=== PATIENT | female | born 1950 | race Two or more races ===

== ENCOUNTER 2018-11-27 12:48 | Emergency (ER) | payer OTHER ==
--- NOTE | 2018-11-27 12:57 | PDOC ---
History of Present Illness - General Chief Complaint: Injury Stated Complaint: FALL,HIT HEAD Time Seen by Provider: 11/27/18 12:52 History Source: Patient Exam Limitations: No Limitations - History of Present Illness Initial Comments: 11/27/18 12:52 68 y/o female fell yesterday and hit the back of her head. She tried coming to the ER last night but didn't know how to get in. She denies LOC. No pain, weakness or numbness. Not on blood thinners. Feels fine otherwise. No headache. Denies N/V. Severity: mild Associated Symptoms: denies: headaches, nausea/vomiting, syncope Review of Systems - Review of Systems Able to Perform ROS?: Yes Is the patient limited Syriac proficient: No Constitutional: No: Chills, Fever Respiratory: No: Cough, Shortness of Breath Cardiac (ROS): No: Syncope, Chest Tightness ABD/GI: No: Nausea, Vomiting : No: Dysuria Neurological: No: Paresthesia, Weakness, Dizziness All Other Systems: Reviewed and Negative *Physical Exam - Physical Exam General Appearance: Yes: Nourished, Appropriately Dressed. No: Apparent Distress HEENT: positive: EOMI, KRISTINE, Normal ENT Inspection, Normal Voice, Other (arcus senilis b/l) Neck: positive: Trachea midline, Normal Thyroid, Supple. negative: Tender, Rigid Respiratory/Chest: positive: Lungs Clear, Normal Breath Sounds. negative: Chest Tender, Respiratory Distress Cardiovascular: positive: Regular Rhythm, Regular Rate, S1, S2. negative: Edema , JVD, Murmur Vascular Pulses: Femoral (R): 4+, Femoral (L): 4+, Carotid (R): 4+, Carotid (L) : 4+, Dorsalis-Pedis (R): 4+, Doralis-Pedis (L): 4+ Gastrointestinal/Abdominal: positive: Normal Bowel Sounds, Flat, Soft. negative : Tender, Organomegaly Lymphatic: negative: Adenopathy, Tenderness, Other Musculoskeletal: positive: Normal Inspection, Other (neck supple, no spinous process tenderness, full ROM). negative: CVA Tenderness Extremity: positive: Normal Capillary Refill, Normal Inspection, Normal Range of Motion. negative: Tender Integumentary: positive: Normal Color, Dry, Warm, Other (3 cm laceration to occipital area, non bleeding no redness no sign of infection, non tender clot formed, healing). negative: Swelling, Ecchymosis, Bruising Neurologic: positive: community assistant II-XII NML intact, Fully Oriented, Alert, Normal Mood/ Affect (strength 5+/5 b/l in UE and LE, no focal deficits noted), Normal Response, Motor Strength 5/5 ED Treatment Course - ADDITIONAL ORDERS Additional order review: 11/27/18 12:57 No LOC, laceration that is healing Will hold off on CT head, pt not on blood thinners and no neurological deficits Pt understands risks and benefits and wishes to hold of on CT head *DC/Admit/Observation/Transfer Diagnosis at time of Disposition: Head injury Qualifiers: Encounter type: initial encounter Qualified Code(s): S09.90XA - Unspecified injury of head, initial encounter Laceration of scalp Qualifiers: Encounter type: initial encounter Qualified Code(s): S01.01XA - Laceration without foreign body of scalp, initial encounter - Discharge Dispostion Disposition: HOME Condition at time of disposition: Good Decision to Admit order: No - Referrals - Patient Instructions Printed Discharge Instructions: DI for Closed Head Injury, DI for Laceration Repair of the Scalp Additional Instructions: Keep clean Ice, rest, Tylenol Head injury handout If worsen return to ER - Post Discharge Activity
[2018-11-27 13:02] VITALS: BP 148/93; PULSE 99; TEMP 98.3; BMI 31.2
== END 2018-11-27 13:29 | disposition home or self-care (01) ==
LOC: FER 12:48
DX: S09.90XA Unspecified injury of head, initial encounter (principal); S01.01XA Laceration without foreign body of scalp, initial encounter; W19.XXXA Unspecified fall, initial encounter; Y93.9 Activity, unspecified; Y92.9 Unspecified place or not applicable
CPT/HCPCS: 99282-25

== ENCOUNTER 2023-02-13 05:49 | Emergency (ER) | payer OTHER ==
[2023-02-13 05:57] VITALS: RESP 20; TEMP 97.9; BMI 33.2
[2023-02-13] MEDS ORDERED: ACETAMINOPHEN 1000 MG/100 ML BAG IVPB ONE (06:07)
[2023-02-13 07:05] LABS: BASO % 0.8 % (0-2.0); EOS % 1.7 % (0-4.5); HEMATOCRIT 45.2 % (32.4-45.2); HEMOGLOBIN 14.8 GM/dL (10.7-15.3); LYMPH % 21.2 % (8-40); MCH 31.1 pg (25.7-33.7); MCHC 32.7 g/dl (32.0-36.0); MEAN CELL VOLUME 94.9 fl (80-96); MEAN PLT VOLUME 10.9 fl (7.5-11.1); MONO % 5.1 % (3.8-10.2); NEUT % 71.2 % (42.8-82.8); PLATELET COUNT 169 10^3/uL (134-434); RBC 4.76 M/mm3 (3.60-5.2); RDW 13.9 % (11.6-15.6); WHITE BLOOD COUNT 10.6 K/mm3 (4.0-10.0)
[2023-02-13] MEDS ORDERED: MAG HYDROX/AL HYDROX/SIMETH 30 ML UNIT-DOSE CUP PO ONE (07:05)
[2023-02-13] MEDS ORDERED: MAG HYDROX/AL HYDROX/SIMETH 30 ML UNIT-DOSE CUP ONE (07:21)
[2023-02-13] MEDS ORDERED: FAMOTIDINE 20 MG/50 ML IVPB 20 MG/50 ML MG IVPB ONE ×2 (07:30→07:48)
[2023-02-13 08:14] LABS: ALBUMIN 3.9 g/dl (3.4-5.0); BILIRUBIN,TOTAL 0.4 mg/dL (0.2-1); BLOOD UREA NITROGEN 11.6 mg/dL (7-18); CREATININE 0.7 mg/dL (0.55-1.3); POTASSIUM 5.7 mmol/L (3.5-5.1); TOT PROT 8.2 g/dl (6.4-8.2)
[2023-02-13] MEDS ORDERED: LIDOCAINE VISCOUS 2% ORAL/TOP 15 ML UNIT-DOSE CUP MM ONE (09:20)
[2023-02-13 09:45] VITALS: BP 143/75; PULSE 84
== END 2023-02-13 10:36 | disposition home or self-care (01) ==
LOC: JER 05:49
PROC: 3E033GC Introduction of Other Therapeutic Substance into Peripheral Vein, Percutaneous Approach (ICD-10-PCS; principal; 2023-02-13)
DX: R06.02 Shortness of breath (principal); R13.10 Dysphagia, unspecified; R07.0 Pain in throat; J02.9 Acute pharyngitis, unspecified; Z20.822 Contact with and (suspected) exposure to COVID-19
CPT/HCPCS: 0241U-QW; 36415; 70360-TC-FY; 70490-TC; 71045-TC-FY; 80053; 84443; 84484; 85025; 87070; 93005; 93010; 99285-25

== ENCOUNTER 2024-01-12 04:15 | Day surgery (SDC) | payer OTHER ==
[2024-01-07 14:03] VITALS: BMI 26.6
[~2024-01-12 04:15] MED LIST: ACETAMINOPHEN 325 MG TABLET (FP) PO PRN
[2024-01-12 06:17] VITALS: RESP 18
[2024-01-12] MEDS ORDERED: CYCLOPENTOLATE HCL 1% OPHTH SOLN 2 ML BOTTLE ONE (06:17)
[2024-01-12] MEDS ORDERED: TROPICAMIDE 1% OPHTH SOLN 15 ML BOTTLE ONE (06:17)
[2024-01-12] MEDS ORDERED: KETOROLAC TROMETHAMINE 0.5% EYE DROP 1 DROP DROPS ONE (06:17)
[2024-01-12] MEDS ORDERED: PHENYLEPHRINE 2.5% OPTHALMIC DROP 2ML BOTTLE ONE (06:17)
[2024-01-12] MEDS ORDERED: OFLOXACIN 0.3% OPHTHALMIC SOLUTION 5 ML BOTTLE ONE (06:18)
[2024-01-12] MEDS: KETOROLAC TROMETHAMINE 0.5% EYE DROP 1 DROP DROPS OD ONE (06:27)
[2024-01-12] MEDS: PHENYLEPHRINE 2.5% OPHTH SOLN 15 ML BOTTLE OD ONE (06:27)
[2024-01-12] MEDS: TROPICAMIDE 1% OPHTH SOLN 15 ML BOTTLE OD ONE (06:27)
[2024-01-12] MEDS: CYCLOPENTOLATE HCL 1% OPHTH SOLN 2 ML BOTTLE OD ONE (06:27)
[2024-01-12] MEDS: OFLOXACIN 0.3% OPHTHALMIC SOLUTION 5 ML BOTTLE OD ONE (06:27)
[2024-01-12] MEDS: TROPICAMIDE 1% OPHTH SOLN 15 ML BOTTLE OP SCH (06:43)
[2024-01-12] MEDS: OFLOXACIN 0.3% OPHTHALMIC SOLUTION 5 ML BOTTLE OP SCH (06:43)
[2024-01-12] MEDS: PHENYLEPHRINE 2.5% OPHTH SOLN 15 ML BOTTLE OP SCH (06:43)
[2024-01-12] MEDS: CYCLOPENTOLATE HCL 1% OPHTH SOLN 2 ML BOTTLE OP SCH (06:43)
[2024-01-12] MEDS: KETOROLAC TROMETHAMINE 0.5% EYE DROP 1 DROP DROPS OP SCH (06:43)
[2024-01-12] MEDS ORDERED: EPINEPHrine/PF 1 MG/1 ML (1:1,000) AMPULE ONE (07:29)
[2024-01-12] MEDS ORDERED: VANCOMYCIN 500 MG VIAL (RESTRICTED TO ID ONLY) ONE (07:31)
[2024-01-12] MEDS ORDERED: BSS (NA/CA/MG/K) BALANCED SALT SOLUTION OPHTH SOLN 15 ML BOTTLE ONE (07:31)
[2024-01-12] MEDS ORDERED: LIDOCAINE HCL/PF 1% SDV 5ML VIAL ONE (07:31)
[2024-01-12] MEDS ORDERED: TETRACAINE 0.5% OPHTH SOLN 2 ML BOTTLE ONE (07:31)
[2024-01-12] MEDS ORDERED: POVIDONE-IODINE 5% OPHTHALMIC PREP 30 ML SOLUTION ONE (07:32)
[2024-01-12] MEDS ORDERED: MIDAZOLAM HCL 2 MG/2 ML SINGLE DOSE VIAL ONE (07:33)
[2024-01-12] MEDS ORDERED: ONDANSETRON 4 MG/2 ML VIAL ONE (07:33)
[2024-01-12] MEDS ORDERED: PROPOFOL 20 ML ONE (07:33)
[2024-01-12] MEDS: TETRACAINE 0.5% OPHTH SOLN 2 ML BOTTLE OD ONE (08:00)
[2024-01-12] MEDS: POVIDONE-IODINE 5% OPHTHALMIC PREP 30 ML SOLUTION OD ONE (08:02)
[2024-01-12] MEDS: LIDOCAINE HCL 1% PRESERVATIVE FREE - 30ML VIAL IO ONE (08:08)
[2024-01-12] MEDS: TRYPAN BLUE 0.5 ML DISP.SYRIN IO ONE (08:09)
[2024-01-12] MEDS: BSS (NA/CA/MG/K) BALANCED SALT SOLUTION OPHTH SOLN 15 ML BOTTLE IO ONE (08:10)
[2024-01-12] MEDS: CHONDROITIN SU A/HYALUR SOD 1 KIT IO ONE (08:11)
[2024-01-12] MEDS: EPINEPHrine/PF 1 MG/1 ML (1:1,000) AMPULE IO ONE (08:17)
[2024-01-12] MEDS: VANCOMYCIN 500 MG VIAL (RESTRICTED TO ID ONLY) IVPB ONE ×2 (08:29)
[2024-01-12] MEDS: ACETAMINOPHEN 325 MG TABLET (FP) PO ONE (08:50)
[2024-01-12] MEDS ORDERED: ACETAMINOPHEN 325 MG TABLET (FP) ONE (08:51)
[2024-01-12 12:16] VITALS: BP 110/69; PULSE 88; TEMP 98.4
== END 2024-01-12 09:25 | disposition home or self-care (01) ==
LOC: JASU-SURG 04:15
PROVIDERS: ATTEND Ophthalmology
PROC: 08RJ3JZ Replacement of Right Lens with Synthetic Substitute, Percutaneous Approach (ICD-10-PCS; principal; 2024-01-12 08:00)
DX: H26.9 Unspecified cataract (principal)
CPT/HCPCS: V2632

== ENCOUNTER 2024-01-26 04:35 | Day surgery (SDC) | payer OTHER ==
[2024-01-21 10:57] VITALS: BMI 31.8
[2024-01-26 07:43] VITALS: RESP 18
[2024-01-26] MEDS ORDERED: KETOROLAC TROMETHAMINE 0.5% EYE DROP 1 DROP DROPS ONE (07:44)
[2024-01-26] MEDS ORDERED: OFLOXACIN 0.3% OPHTHALMIC SOLUTION 5 ML BOTTLE ONE (07:44)
[2024-01-26] MEDS ORDERED: CYCLOPENTOLATE HCL 1% OPHTH SOLN 2 ML BOTTLE ONE (07:44)
[2024-01-26] MEDS ORDERED: TROPICAMIDE 1% OPHTH SOLN 15 ML BOTTLE ONE (07:44)
[2024-01-26] MEDS ORDERED: PHENYLEPHRINE 2.5% OPTHALMIC DROP 2ML BOTTLE ONE (07:44)
[2024-01-26] MEDS: TROPICAMIDE 1% OPHTH SOLN 15 ML BOTTLE OP SCH (07:50)
[2024-01-26] MEDS: CYCLOPENTOLATE HCL 1% OPHTH SOLN 2 ML BOTTLE OP SCH (07:50)
[2024-01-26] MEDS: KETOROLAC TROMETHAMINE 0.5% EYE DROP 1 DROP DROPS OP SCH (07:50)
[2024-01-26] MEDS ORDERED: POVIDONE-IODINE 5% OPHTHALMIC PREP 30 ML SOLUTION ONE (07:51)
[2024-01-26] MEDS ORDERED: EPINEPHrine/PF 1 MG/1 ML (1:1,000) AMPULE ONE (07:51)
[2024-01-26] MEDS ORDERED: TRYPAN BLUE 0.5 ML DISP.SYRIN ONE (07:51)
[2024-01-26] MEDS ORDERED: LIDOCAINE HCL/PF 1% SDV 5ML VIAL ONE (07:51)
[2024-01-26] MEDS: OFLOXACIN 0.3% OPHTHALMIC SOLUTION 5 ML BOTTLE OP SCH (07:51)
[2024-01-26] MEDS ORDERED: TETRACAINE 0.5% OPHTH SOLN 2 ML BOTTLE ONE (08:06)
[2024-01-26] MEDS ORDERED: CHONDROITIN SU A/HYALUR SOD 1 KIT ONE (08:09)
[2024-01-26] MEDS ORDERED: ONDANSETRON 4 MG/2 ML VIAL ONE (09:02)
[2024-01-26] MEDS ORDERED: MIDAZOLAM HCL 2 MG/2 ML SINGLE DOSE VIAL ONE (09:03)
[2024-01-26] MEDS: TETRACAINE 0.5% OPHTH SOLN 2 ML BOTTLE OS ONE ×2 (10:08)
[2024-01-26] MEDS: POVIDONE-IODINE 5% OPHTHALMIC PREP 30 ML SOLUTION OS ONE (10:10)
[2024-01-26] MEDS: LIDOCAINE HCL 1% PRESERVATIVE FREE - 30ML VIAL IO ONE (10:14)
[2024-01-26] MEDS: BSS (NA/CA/MG/K) BALANCED SALT SOLUTION OPHTH SOLN 15 ML BOTTLE OS ONE (10:15)
[2024-01-26] MEDS: TRYPAN BLUE 0.5 ML DISP.SYRIN IO ONE (10:17)
[2024-01-26] MEDS: CHONDROITIN SU A/HYALUR SOD 1 KIT IO ONE (10:18)
[2024-01-26] MEDS: EPINEPHrine/PF 1 MG/1 ML (1:1,000) AMPULE IO ONE ×2 (10:23)
[2024-01-26] MEDS ORDERED: ACETAMINOPHEN 325 MG TABLET (FP) ONE (10:56)
[2024-01-26] MEDS: ACETAMINOPHEN 325 MG TABLET (FP) PO PRN (11:02)
[2024-01-26 11:45] VITALS: BP 118/60; PULSE 77; TEMP 97.5
[2024-01-26] MEDS ORDERED: PHENYLEPHRINE 2.5% OPHTH SOLN 15 ML BOTTLE OP SCH (13:15)
== END 2024-01-26 11:35 | disposition home or self-care (01) ==
LOC: JASU-SURG 04:35
PROVIDERS: ATTEND Ophthalmology
PROC: 08RK3JZ Replacement of Left Lens with Synthetic Substitute, Percutaneous Approach (ICD-10-PCS; principal; 2024-01-26 10:00)
DX: H26.9 Unspecified cataract (principal)
CPT/HCPCS: V2632